=== PATIENT | female | born 1935 | race Caucasian/White ===

== ENCOUNTER 2017-11-24 19:23 | Emergency (ER) | payer MEDICARE, OTHER ==
[2017-11-24] VITALS (7 sets, daily range): BP systolic 107–137; BP diastolic 45–57; PULSE 62–75; RESP 16; TEMP 99.1; O2SAT 95–97
[~2017-11-24] VITALS: Ht 167.6 cm; Wt 63.5 kg
[~2017-11-24 19:23] MED LIST: APIX5TAB PO; ASPI81 PO; ATEN1TAB74 PO; FORT200S; LEVO.1 PO; SIMV40 PO; TEMA15 PO
[2017-11-24] MEDS ORDERED: SODIUM CHLOR 0.9% 1000 ML INJ 1,000 ML IV SCH (19:48)
[2017-11-24] MEDS ORDERED: SODIUM CHLORIDE 0.9% FLUSH 10 ML FLUSH IV FLUSH PRN (20:00)
[2017-11-24] MEDS ORDERED: ONDANSETRON HCL 4 MG/2 ML VIAL IVP ONE (20:00)
[2017-11-24] MEDS ORDERED: ATEN50TA PO (20:04)
[2017-11-24] MEDS ORDERED: CALC200S NASAL (20:04)
[2017-11-24] MEDS ORDERED: SIMV40TA PO (20:04)
[2017-11-24] MEDS ORDERED: DONE10TA7 PO (20:04)
[2017-11-24] MEDS ORDERED: LEVO75TA3 PO (20:04)
[2017-11-24] MEDS ORDERED: QUET1TAB7 PO (20:04)
[2017-11-24] MEDS ORDERED: ASPI81CH6 CHEW (20:04)
[2017-11-24] MEDS ORDERED: AMLO5TAB2 PO (20:04)
[2017-11-24] MEDS ORDERED: APIX5TAB PO (20:04)
[2017-11-24] MEDS ORDERED: LORA0.5T PO (20:04)
--- NOTE | 2017-11-24 20:05 | PD ---
HPI Chief Complaint: Abdominal Pain Time Seen by Provider: 19:48 Travel History International Travel<30 days: No Contact w/Intl Traveler<30days: No Traveled to known affect area: No History of Present Illness HPI According to the , he noted the patient was grimacing him and pointing to her suprapubic region. Per no witnessed nausea, vomiting, diarrhea, headache, rash, or any back pain noted. Apparently allergy to morphine and shellfish, truly unknown what the reaction to morphine and his and patient do not recall Past medical history significant for hypothyroid, dementia, Parkinson's, atrial fibrillation, hypertension, hysterectomy, hip replacement, patient had a shunt placed as well. PFSH Past Medical History Arthritis: Yes Asthma: No Atrial Fibrillation: Yes Anxiety: No Depression: No Heart Rhythm Problems: Yes (AFIB) Cancer: No Cardiovascular Problems: Yes High Cholesterol: No Chemotherapy: No Chest Pain: No Congestive Heart Failure: No COPD: No Cerebrovascular Accident: No Dementia: Yes Diabetes: No Diminished Hearing: No Endocrine: Yes GERD: No Glaucoma: No Genitourinary: No Headaches: No Hepatitis: No Hiatal Hernia: No Hypertension: Yes Immune Disorder: No Kidney Stones: No Musculoskeletal: Yes (Arthritis) Neurologic: Yes (Dementia, Parkinsons) Parkinson's Disease: Yes Psychiatric: Yes (Dementia) Reproductive: No Respiratory: No Migraines: No Myocardial Infarction: No Radiation Therapy: No Renal Failure: No Seizures: No Sickle Cell Disease: No Sleep Apnea: No Thyroid Disease: Yes Ulcer: No Past Surgical History Abdominal Surgery: No AICD: No Appendectomy: No Arteriovenous Shunt: No Cardiac Surgery: No Cholecystectomy: No Ear Surgery: No Endocrine Surgery: No Eye Surgery: No Genitourinary Surgery: No Gynecologic Surgery: Yes (hysterectomy) Hysterectomy: Yes (1988) Insulin Pump: No Joint Replacement: No Neurologic Surgery: Yes (SHUNT IN HEAD) Oral Surgery: No Pacemaker: No Thoracic Surgery: No Tonsillectomy: Yes Other Surgery: Yes (Shunt placed in brain) Social History Alcohol Use: Yes (drinks wine) Tobacco Use: No Substance Use: No (Unknown) Allergies-Medications (Allergen,Severity, Reaction): Coded Allergies: morphine (Unverified Allergy, Mild, ITCHING, 05/06/17) shellfish derived (Unverified Allergy, Mild, 05/06/17) Reported Meds & Prescriptions Reported Meds & Active Scripts Active Reported Calcitonin ([place]) Nasal Devol (Calcitonin [place]) 200 Units/Act Soln 1 [place]ol NASAL DAILY Alternate nostrils daily. Amlodipine (Amlodipine Besylate) 5 Mg Tab 5 Mg PO DAILY Eliquis (Apixaban) 5 Mg Tab 5 Mg PO DAILY Atenolol 50 Mg Tab 50 Mg PO DAILY Donepezil 10 Mg Tab 10 Mg PO HS Aspirin Low Dose (Aspirin) 81 Mg Chew 81 Mg CHEW DAILY Simvastatin 40 Mg Tab 40 Mg PO HS Lorazepam 0.5 Mg Tab 0.5 Mg PO HS PRN Quetiapine (Quetiapine Fumarate) 25 Mg Tab 25 Mg PO HS Levothyroxine (Levothyroxine Sodium) 75 Mcg Tab 75 Mcg PO DAILY Review of Systems General / Constitutional: No: Fever Eyes: No: Visual changes HENT: No: Headaches Cardiovascular: No: Chest Pain or Discomfort Respiratory: No: Shortness of Breath Gastrointestinal: Positive: Abdominal Pain Genitourinary: No: Dysuria Musculoskeletal: No: Pain Skin: No Rash Neurologic: No: Weakness Psychiatric: No: Depression Endocrine: No: Polydipsia Hematologic/Lymphatic: No: Easy Bruising Physical Exam Narrative GENERAL: SKIN: Warm and dry. HEAD: Atraumatic. Normocephalic. EYES: Pupils equal and round. No scleral icterus. No injection or drainage. ENT: No nasal bleeding or discharge. Mucous membranes pink and moist. NECK: Trachea midline. No JVD. CARDIOVASCULAR: Regular rate and rhythm. RESPIRATORY: No accessory muscle use. Clear to auscultation. Breath sounds equal bilaterally. GASTROINTESTINAL: Abdomen soft, non-tender, nondistended. MUSCULOSKELETAL: Extremities without clubbing, cyanosis, or edema. No obvious deformities. NEUROLOGICAL: Awake but confused and soft-spoken. Baseline at rest tremor. But the patient was able to follow some commands PSYCHIATRIC: Appropriate mood and affect; insight and judgment normal. Data Data Last Documented VS Vital Signs Date Time Temp Pulse Resp B/P (MAP) Pulse Ox O2 Delivery O2 Flow Rate FiO2 11/24/17 19:40 99.1 73 16 119/50 (73) 97 Orders Orders Complete Blood Count With Diff (11/24/17 19:48) Comprehensive Metabolic Panel (11/24/17 19:48) Lipase (11/24/17 19:48) Urinalysis - C+S If Indicated (3/5/18 19:48) Ct Abd/Pel W/O Iv Contrast (11/24/17 19:48) Iv Access Insert/Monitor (11/24/17 19:48) Ecg Monitoring (11/24/17 19:48) Oximetry (11/24/17 19:48) NPO (11/24/17 19:48) Ondansetron Inj (Zofran Inj) (11/24/17 20:00) Sodium Chlor 0.9% 1000 Ml Inj (Ns 1000 M (11/24/17 19:48) Sodium Chloride 0.9% Flush (Ns Flush) (11/24/17 20:00) Electrocardiogram (11/24/17 19:48) Urine Culture (11/24/17 21:05) Ceftriaxone Inj (Rocephin Inj) (11/24/17 21:45) Labs Laboratory Tests Test 11/24/17 20:15 11/24/17 21:05 White Blood Count 8.2 TH/MM3 Red Blood Count 4.37 MIL/MM3 Hemoglobin 14.0 GM/DL Hematocrit 41.7 % Mean Corpuscular Volume 95.4 FL Mean Corpuscular Hemoglobin 32.0 PG Mean Corpuscular Hemoglobin Concent 33.5 % Red Cell Distribution Width 12.9 % Platelet Count 164 TH/MM3 Mean Platelet Volume 10.1 FL Neutrophils (%) (Auto) 64.9 % Lymphocytes (%) (Auto) 28.0 % Monocytes (%) (Auto) 4.6 % Eosinophils (%) (Auto) 1.2 % Basophils (%) (Auto) 1.3 % Neutrophils # (Auto) 5.3 TH/MM3 Lymphocytes # (Auto) 2.3 TH/MM3 Monocytes # (Auto) 0.4 TH/MM3 Eosinophils # (Auto) 0.1 TH/MM3 Basophils # (Auto) 0.1 TH/MM3 CBC Comment AUTO DIFF Differential Comment AUTO DIFF CONFIRMED Platelet Estimate NORMAL Platelet Morphology Comment NORMAL Red Cell Morphology Comment NORMAL Blood Urea Nitrogen 29 MG/DL Creatinine 0.86 MG/DL Random Glucose 94 MG/DL Total Protein 7.3 GM/DL Albumin 3.6 GM/DL Calcium Level 9.2 MG/DL Alkaline Phosphatase 93 U/L Aspartate Amino Transf (AST/SGOT) 284 U/L Alanine Aminotransferase (ALT/SGPT) 143 U/L Total Bilirubin 0.4 MG/DL Sodium Level 141 MEQ/L Potassium Level 4.4 MEQ/L Chloride Level 107 MEQ/L Carbon Dioxide Level 28.4 MEQ/L Anion Gap 6 MEQ/L Estimat Glomerular Filtration Rate 63 ML/MIN Lipase 250 U/L Urine Collection Type CATH Urine Color YELLOW Urine Turbidity CLEAR Urine pH 5.5 Urine Specific [place] 1.025 Urine Protein NEG mg/dL Urine Glucose (UA) NEG mg/dL Urine Ketones NEG mg/dL Urine Occult Blood TRACE Urine Nitrite POS Urine Bilirubin NEG Urine Urobilinogen 0.2 MG/DL Urine Leukocyte Esterase NEG Urine RBC 0-3 /hpf Urine WBC 6-8 /hpf Urine WBC Clumps RARE Urine Squamous Epithelial Cells 0-5 /hpf Urine Bacteria MANY /hpf Urine Mucus MOD /lpf Microscopic Urinalysis Comment CATH-CULTURE IND MDM Medical Decision Making Medical Screen Exam Complete: Yes Emergency Medical Condition: Yes Medical Record Reviewed: Yes Differential Diagnosis UTI versus colitis versus diverticulitis Narrative Course CBC shows no leukocytosis, no anemia, normal platelet count, and no left shift. Metabolic profile shows normal electrolytes, normal kidney function for age, normal lipase, normal bilirubin and normal alk phos. However she does have mild elevation of her transaminase with an AST of 284 and an ALT of 143, none of these show any type of obstructive pattern. UA has positive nitrites positive WBCs many bacteria all consistent with a UTI. CAT scan read by radiologist as a right total hip arthroplasty, scoliosis of the lumbar spine convex towards the left, [employer]NEY[employer] shunt catheter tip in the left lower quadrant without focal fluid about the tip, and no evidence of any renal stones or hydronephrosis. Additionally there is no intestinal evidence of inflammation, free air or bowel obstruction. Diagnosis Primary Impression: UTI Additional Impression: MILD ELEVATION OF LIVER ENZYMES Patient Instructions: General Instructions, Urinary Tract Infection in Women ( [place]) Additional Instructions: PLEASE FOLLOW UP WITH YOUR PRIMARY CARE DOCTOR TO FURTHER EVALUATE YOUR LIVER ENZYMES. THEY ARE NOT ELEVATED ENOUGH TO WARRANT ADMISSION, AND YOU WERE GIVEN ANTIIBIOTIC FOR YOUR URINARY TRACT INFECTION INTRAVENOUSLY WELL GIVEN A PRESCRIPTION. Scripts Nitrofurantoin Monohydrate Macrocrystals (Macrobid) 100 Mg Capsule 100 MG PO BID for Infection for 7 Days, #14 CAP 0 Refills Prov: Antoine Bernstein MD 11/24/17 Disposition: 01 DISCHARGE HOME Condition: Stable Antoine Bernstein MD Nov 24, 2017 20:05
[2017-11-24 20:28] LABS: AUTOMATED NEUTROPHIL # 5.3 TH/MM3 (1.8-7.7); BASOPHIL # 0.1 TH/MM3 (0-0.2); BASOPHIL % 1.3 % (0.0-2.0); EOSINOPHIL # 0.1 TH/MM3 (0-0.4); EOSINOPHIL % 1.2 % (0.0-4.0); HEMATOCRIT 41.7 % (35.0-46.0); LYMPHOCYTE # 2.3 TH/MM3 (1.0-4.8); MEAN CELL VOLUME 95.4 FL (80.0-100.0); MEAN CORPUSCULAR HGB CONC 33.5 % (32.0-36.0); MEAN PLATELET VOLUME 10.1 FL (7.0-11.0); MONO % 4.6 % (0.0-8.0); MONOCYTE # 0.4 TH/MM3 (0-0.9); NEUT % 64.9 % (16.0-70.0); PLATELET COUNT 164 TH/MM3 (150-450); RED BLOOD COUNT 4.37 MIL/MM3 (4.00-5.30); RED CELL DISTRIBUTION WIDTH 12.9 % (11.6-17.2); WHITE BLOOD COUNT 8.2 TH/MM3 (4.0-11.0)
[2017-11-24 20:38] LABS: CHLORIDE 107 MEQ/L (98-107); SODIUM (NA) 141 MEQ/L (136-145)
[2017-11-24 20:44] LABS: CALCIUM 9.2 MG/DL (8.5-10.1)
[2017-11-24 20:45] LABS: ALBUMIN 3.6 GM/DL (3.4-5.0); BICARBONATE 28.4 MEQ/L (21.0-32.0); BLOOD UREA NITROGEN 29 MG/DL (7-18); GLUCOSE,RANDOM 94 MG/DL (74-106)
[2017-11-24 20:48] LABS: ALT (GPT) 143 U/L (10-53); AST (GOT) 284 U/L (15-37); CREATININE 0.86 MG/DL (0.50-1.00); GLOMERULAR FILTRATION RATE 63 ML/MIN (>89)
[2017-11-24 20:49] LABS: TOTAL BILIRUBIN ADULT 0.4 MG/DL (0.2-1.0); TOTAL PROTEIN 7.3 GM/DL (6.4-8.2)
[2017-11-24 20:50] LABS: ALKALINE PHOSPHATASE 93 U/L (45-117)
[2017-11-24 21:18] LABS: BILIRUBIN, URINE NEG (NEG); BLOOD, URINE TRACE (NEG); GLUCOSE,URINE NEG (NEG); KETONE, URINE NEG (NEG); NITRITE,URINE POS (NEG); PH, URINE 5.5 (5.0-8.5); URINE COLOR YELLOW (YELLW/STRAW); URINE LEUKOCYTE ESTERASE NEG (NEG)
[2017-11-24 21:25] LABS: MUCUS URINE MOD /lpf (OCC)
[2017-11-24 21:26] LABS: BACTERIA, URINE MANY /hpf; RBC, URINE 0-3 /hpf (0-3); SQUAMOUS EPITHELIAL CELL URINE 0-5 /hpf (0-5); WHITE BLOOD CELL CLUMPS RARE
--- NOTE | 2017-11-24 21:40 | RADRPT ---
EXAM DATE/TIME: 11/24/2017 20:39 [facility] COMPARISON: No previous studies available for comparison. INDICATIONS : Left lower quadrant pain. ORAL CONTRAST: No oral contrast ingested. RADIATION DOSE: 8.48 CTDIvol (mGy) MEDICAL HISTORY : Hypertension. Parkinsons. SURGICAL HISTORY : Hysterectomy. ENCOUNTER: Initial ACUITY: 2 days PAIN SCALE: 3/10 LOCATION: Left lower quadrant TECHNIQUE: Volumetric scanning of the abdomen and pelvis was performed. Using automated exposure control and ad justment of the mA and/or kV according to patient size, radiation dose was kept as low as reasonably achievable to obtain optimal diagnostic quality images. DICOM format image data is available electro nically for review and comparison. FINDINGS: LOWER LUNGS: The visualized lower lungs are clear. LIVER: Homogeneous density without lesion for noncontrast technique.. There is no dilation of the biliary t ree. Cholecystectomy.. SPLEEN: Normal size without lesion. PANCREAS: Within normal limits. KIDNEYS: Normal in size and shape. There is no mass, stone, or hydronephrosis. ADRENAL GLANDS: Within normal limits. VASCULAR: There is no aortic aneurysm. BOWEL/MESENTERY: The stomach, small bowel, and colon demonstrate no acute abnormality. There is no free intraperitone al air or fluid. Peritoneal catheter tip in the left lower quadrant. No fluid about the catheter ti p.. ABDOMINAL WALL: Within normal limits. RETROPERITONEUM: There is no lymphadenopathy. BLADDER: No wall thickening or mass. REPRODUCTIVE: Within normal limits. INGUINAL: There is no lymphadenopathy or hernia. MUSCULOSKELETAL: Right total hip arthroplasty. Scoliosis of the lumbar spine convex towards the left. CONCLUSION: 1. [employer]EM[employer] shunt catheter tip in the left lower quadrant without focal fluid about the tip. 2. No evidence of renal stones or hydronephrosis. Srinivasan Mckeon MD on November 24, 2017 at 21:22 Board Certified Radiologist. This report was verified electronically.
[2017-11-24] MEDS ORDERED: cefTRIAXone INJ 2,000 MG in SODIUM CHLORIDE 0.9% INJ 100 ML IV ONE (21:45)
[2017-11-24] MEDS ORDERED: MACR100C2 PO (21:49)
--- NOTE | 2017-11-26 06:45 | EKG ---
Date Performed: 11/24/2017 Time Performed: 19:59:36 PTAGE: 82 years EKG: THE UNDERLYING RHYTHM IS DIFFICULT TO DISCERN DUE TO AN EXTREME AMOUNT OF ARTIFACT SUSPECT ATRIAL FIBRILLATION, ARTIFACT MAKES FURTHER INTERPRETATION DIFFICULT CONSIDER REPEAT EKG SUSPECT POSS IBLE PVCs WELL, VERY LITTLE CAN BE SEEN COMPARED TO THE PRIOR TRACING DUE TO THE ARTIFACT. PREVIOUS TRACING : 09/25/2014 04.21 DOCTOR: Reid Paulino Interpretating Date/Time 11/26/2017 06:44:38
== END 2017-11-24 23:43 | disposition home or self-care (01) ==
LOC: PHED 19:23
DX: N39.0 Urinary tract infection, site not specified (principal); R74.8 Abnormal levels of other serum enzymes; B96.89 Other specified bacterial agents as the cause of diseases classified elsewhere; M41.9 Scoliosis, unspecified; E03.9 Hypothyroidism, unspecified; G20 Parkinson's disease; F02.80 Dementia in other diseases classified elsewhere, unspecified severity, without behavioral disturbance, psychotic disturbance, mood disturbance, and anxiety; I10 Essential (primary) hypertension; I48.91 Unspecified atrial fibrillation
CPT/HCPCS: 74176; 80053; 81001; 83690; 85025; 87077; 87086; 87186; 93005; 96361; 96365; 96375; 99285; J0696; J2405; J7030